=== PATIENT | male | born 1995 | race African-American/Black ===

== ENCOUNTER 2021-09-18 21:16 | Inpatient (IN) | payer OTHER ==
[~2021-09-18] VITALS: Ht 177.8 cm; Wt 85.7 kg
[2021-09-19] VITALS (8 sets, daily range): BP systolic 121–150; BP diastolic 48–76
[2021-09-19] MEDS ORDERED: ACETAMINOPHEN 325 MG TAB PO PRN (01:45)
[2021-09-19] MEDS ORDERED: NITROGLYCERIN 0.4 MG SL TAB SL PRN (01:45)
[2021-09-19] MEDS ORDERED: MORPHINE SULFATE INJECTION 2 MG/ML SYRG IV PRN (01:45)
[2021-09-19] MEDS ORDERED: ONDANSETRON HCL 4 MG/2 ML VIAL IV PRN (01:45)
[2021-09-19] MEDS ORDERED: MORPHINE SULFATE 4 MG/ML SYR/VIAL IV PRN (01:45)
[2021-09-19] MEDS ORDERED: IBUPROFEN 600 MG TAB PO SCH (01:45)
[2021-09-19] MEDS ORDERED: TEMAZEPAM 15 MG CAP PO PRN (01:45)
[2021-09-19] MEDS ORDERED: FAMOTIDINE 20 MG TAB PO ONE (04:30)
[2021-09-19 04:33] LABS: Basophils # (auto) 0 10 ^3/uL (0-0.2); Basophils % (auto) 0.4 % (0.0-2.0); Eosinophils # (auto) 0.3 10 ^3/uL (0-0.8); Eosinophils % (auto) 4.3 % (0.0-7.0); Hematocrit 43.9 % (41.0-53.0); Hemoglobin 14.7 g/dL (13.5-17.5); Lymphocytes # (auto) 2.8 10 ^3/uL (0.4-5.4); Lymphocytes % (auto) 43.3 % (10.0-50.0); Mean Corpuscular Hemoglobin 27.4 pg (28.0-32.0); Mean Corpuscular Hgb Conc. 33.6 g/dL (32.0-36.0); Mean Corpuscular Volume 81.6 fL (80.0-100.0); Monocytes # (auto) 0.5 10 ^3/uL (0-1.3); Monocytes % (auto) 8.2 % (0.0-12.0); Neutrophils # (auto) 2.8 10 ^3/uL (1.6-8.6); Neutrophils % (auto) 43.8 % (37.0-80.0); Nucleated Red Blood Cells % 0.1 %; Red Blood Cells 5.37 10^6/uL (4.5-5.90); White Blood Cell 6.4 10^3/uL (4.4-10.8)
[2021-09-19] MEDS: SODIUM CHLORIDE 0.9% 1,000 ML IV SCH ×5 (04:36→23:00)
[2021-09-19 04:49] LABS: Albumin 3.9 g/dL (3.4-5.0); CRP High Sensitivity 0.03 mg/dL (< 0.3); Calcium 8.8 mg/dL (8.5-10.1); Potassium 3.7 mmol/L (3.5-5.1)
[2021-09-19 04:55] LABS: BUN/Creatinine Ratio 8.5; Bilirubin, Total 1.2 mg/dL (0.2-1.0); Total Protein 6.6 g/dL (6.4-8.2)
[2021-09-19] MEDS: IBUPROFEN 600 MG TAB PO SCH ×4 (08:27→22:07)
[2021-09-19] MEDS: FAMOTIDINE 20 MG TAB PO SCH ×3 (08:27→22:06)
[2021-09-19] MEDS: ENOXAPARIN SOD 40 MG/0.4 ML SYRINGE SC SCH ×2 (08:28→08:45)
[2021-09-19] MEDS ORDERED: methylPREDNISolone SOD SUCC 40 MG/ML VL IV ONE ×2 (11:30)
[2021-09-19] MEDS: COLCHICINE 0.6 MG CAP PO SCH (22:06)
[2021-09-20 05:00] VITALS: BP 112/64
[2021-09-20 05:48] LABS: Basophils # (auto) 0 10 ^3/uL (0-0.2); Basophils % (auto) 0.1 % (0.0-2.0); Eosinophils # (auto) 0 10 ^3/uL (0-0.8); Eosinophils % (auto) 0.1 % (0.0-7.0); Hematocrit 42.5 % (41.0-53.0); Hemoglobin 14.1 g/dL (13.5-17.5); Lymphocytes # (auto) 1.4 10 ^3/uL (0.4-5.4); Lymphocytes % (auto) 10.9 % (10.0-50.0); Mean Corpuscular Hemoglobin 27.5 pg (28.0-32.0); Mean Corpuscular Hgb Conc. 33.3 g/dL (32.0-36.0); Mean Corpuscular Volume 82.7 fL (80.0-100.0); Monocytes # (auto) 0.8 10 ^3/uL (0-1.3); Monocytes % (auto) 6.3 % (0.0-12.0); Neutrophils # (auto) 10.9 10 ^3/uL (1.6-8.6); Neutrophils % (auto) 82.6 % (37.0-80.0); Red Blood Cells 5.14 10^6/uL (4.5-5.90); Red Cell Distribution Width 14.1 % (11.8-14.3); White Blood Cell 13.2 10^3/uL (4.4-10.8)
[2021-09-20 06:24] LABS: Potassium 4.2 mmol/L (3.5-5.1)
[2021-09-20 06:32] LABS: Albumin 3.6 g/dL (3.4-5.0); BUN/Creatinine Ratio 10.7
[2021-09-20 06:43] LABS: Total Protein 6.2 g/dL (6.4-8.2)
[2021-09-20 08:00] VITALS: BP 116/67
[2021-09-20 08:25] VITALS: BP 116/67
[2021-09-20] MEDS: IBUPROFEN 600 MG TAB PO SCH (10:00)
[2021-09-20] MEDS: FAMOTIDINE 20 MG TAB PO SCH (10:00)
[2021-09-20] MEDS: ENOXAPARIN SOD 40 MG/0.4 ML SYRINGE SC SCH (10:00)
[2021-09-20] MEDS: COLCHICINE 0.6 MG CAP PO SCH (10:00)
[2021-09-20] MEDS: SODIUM CHLORIDE 0.9% 1,000 ML IV SCH (11:05)
[2021-09-20 11:52] VITALS: BP 116/67
== END 2021-09-20 13:20 | disposition home or self-care (01) | DRG 316 ==
LOC: CENTRAL 09-19 01:20 → TELE-CENTR 09-19 14:22
PROVIDERS: ADMIT Internal Medicine; ATTEND Family Medicine
DX: I30.9 Acute pericarditis, unspecified (principal); I10 Essential (primary) hypertension; R00.1 Bradycardia, unspecified; R94.31 Abnormal electrocardiogram [ECG] [EKG]; Z87.891 Personal history of nicotine dependence; Z83.3 Family history of diabetes mellitus; Z82.49 Family history of ischemic heart disease and other diseases of the circulatory system
CPT/HCPCS: 36415; 71045; 80053; 80061; 84484; 85025; 85652; 86141; 93306; G0378